=== PATIENT | female | born 1990 | race Caucasian/White ===

== ENCOUNTER 2018-03-11 06:09 | Day surgery (SDC) | payer OTHER ==
[2018-03-09 13:42] VITALS: BMI 19.6
[2018-03-11] MEDS ORDERED: Midazolam 2 MG/2 ML VIAL ONE (07:40)
[2018-03-11] MEDS ORDERED: Propofol 10 mg/ml Inj (20 ML) ONE (07:40)
[2018-03-11] MEDS ORDERED: Oxytocin 10 Units/ml Inj ONE (07:51)
--- NOTE | 2018-03-11 08:07 | PCM.SURG1 ---
Surgeon's Initial Post Op Note - Surgeon's Notes Surgeon: dr medina Pathology Technician: none Type of Anesthesia: General LMA Anesthesia Administered By: dr rodriguez Pre-Operative Diagnosis: missed at 11week Operative Findings: see the op reoert Post-Operative Diagnosis: same Operation Performed: suction d & Specimen/Specimens Removed: poc. chromosome Estimated Blood Loss: EBL {In ML}: 20 Blood Products Given: N/A Drains Used: No Drains Post-Op Condition: Good Date of Surgery/Procedure: 03/11/18 Time of Surgery/Procedure: 08:00
[2018-03-11 08:44] VITALS: O2SAT 100
[2018-03-11 12:17] VITALS: BP 92/52; PULSE 65; RESP 18; TEMP 98.3
--- NOTE | 2018-03-11 20:15 | OP ---
PROCEDURE DATE: 03/11/2018 PREOPERATIVE DIAGNOSIS: This is a 27-year-old 1, para 0 at 11 weeks missed . POSTOPERATIVE DIAGNOSIS: This is a 27-year-old 1, para 0 at 11 weeks missed . SURGEON: Evelio Patricia MD FORENSIC MANAGER SURGEON: None. ANESTHESIA: General anesthesia. ANESTHESIOLOGIST: Haim Espinoza MD COMPLICATIONS: None. PROCEDURE PERFORMED: Suction dilatation and curettage. DESCRIPTION OF PROCEDURE: After informed consent was obtained, the patient brought to the operating room, placed on the table where general anesthesia was given. Once the anesthesia was found to be adequate, the patient was prepped and draped in the normal sterile fashion. Examination under anesthesia revealed the uterus to be 9 to 10-week size. No pelvic or adnexal masses. Anterior lip of the cervix was grasped with a tenaculum, gentle dilation of the cervix was done. After was sent to the Pathology and tenaculum was taken out. Pitocin was started. The patient tolerated the procedure well. Lap, sponge, and instrument counts were correct x2. Evelio Patricia MD
== END 2018-03-11 11:08 | disposition home or self-care (01) ==
LOC: C.SDS 06:09
PROVIDERS: ATTEND Obstetrics & Gynecology
DX: O02.1 Missed abortion (principal); Z3A.11 11 weeks gestation of pregnancy
CPT/HCPCS: 59820; 88233; 88262; 88305; J2250; J2704; J3010